=== PATIENT | male | born 1990 | race Caucasian/White ===

== ENCOUNTER → 2017-02-11 | Outpatient (CLI) | payer OTHER ==
[~2017-02-11] MED LIST: PERCOCET 5-3251 EACH PO; THERAGRAN-M1 TAB PO
== END | disposition disaster alternative care site (69) ==
LOC: GRAD 02-04 14:30
DX: S83.206A Unspecified tear of unspecified meniscus, current injury, right knee, initial encounter (principal); S83.521A Sprain of posterior cruciate ligament of right knee, initial encounter; X58.XXXA Exposure to other specified factors, initial encounter